=== PATIENT | male | born 1970 | race Caucasian/White ===

== ENCOUNTER 2023-04-12 19:26 | Outpatient (RCR) | payer OTHER, SELFPAY | END 2023-04-12 23:59 | disposition home or self-care (01) | LOC: RPT 19:26 | PROVIDERS: ATTENDING PHYSICIAN Nurse Practitioner | DX: M25.512 Pain in left shoulder (principal); Z73.6 Limitation of activities due to disability; M54.2 Cervicalgia | CPT/HCPCS: 97110; 97162 ==

== ENCOUNTER 2023-04-26 18:48 | Outpatient (RCR) | payer OTHER, SELFPAY | END 2023-04-26 23:59 | disposition home or self-care (01) | LOC: RPT 18:48 | PROVIDERS: ATTENDING PHYSICIAN Nurse Practitioner | DX: M25.512 Pain in left shoulder (principal); Z73.6 Limitation of activities due to disability | CPT/HCPCS: 97110 ==